=== PATIENT | male | born 1990 | race African-American/Black ===

== ENCOUNTER 2021-01-01 15:31 | Inpatient (IN) | payer OTHER ==
[2021-01-01] MEDS ORDERED: SODIUM CHLORIDE 0.9% 1,000 ML IV STA ×3 (15:45→16:56)
[2021-01-01] MEDS ORDERED: HYDROmorphone 1 MG/ML CARPUJECT IVP STA (15:45)
[2021-01-01] MEDS ORDERED: ONDANSETRON 4 MG/2 ML VIAL IVP STA (15:45)
--- NOTE | 2021-01-01 15:48 | ED Physician Documentation ---
History of Present Illness - Stated complaint Stated Complaint: R FLANK PX - Chief complaint Chief Complaint: Abd Pain - Additonal information Additional information: 30-year old male presents emergency department for evaluation of 2 days right flank pain. Initially began in the right lower quadrant but then migrated up towards his flank. Reports vomiting tactile fevers. Some dysuria and discoloration of the urine. States he had similar last year that was self resolved though he sought no medical treatment. Denies any pertinent past medical or surgical history. Takes no prescribed medications. Denies tobacco vaping alcohol use/abuse Review of Systems Constitutional: denies: Fever, Chills Eyes: reports: Reviewed and negative Ears: reports: Reviewed and negative Nose: reports: Reviewed and negative Throat: reports: Reviewed and negative Cardiac: reports: Reviewed and negative Respiratory: reports: Reviewed and negative GI: reports: Abdominal Pain, Nausea, Vomiting : reports: Dysuria Skin: denies: Rash, Lesions Musculoskeletal: denies: Neck pain, Back pain Neurologic: reports: Reviewed and negative Psychiatric: reports: Reviewed and negative PD PAST MEDICAL HISTORY - Present Medications Home Medications: Ambulatory Orders Medication Instructions Recorded Confirmed No Known Home Medications 01/01/21 01/01/21 - Allergies Allergies/Adverse Reactions: Allergies Allergy/AdvReac Type Severity Reaction Status Date / Time No Known Drug Allergies Allergy Verified 01/01/21 15:34 PD ED PE EXPANDED - General General: Alert, No acute distress, Well developed/nourished - Cardiac Cardiac: Tachy, Radial strong equal, Pedal strong equal, Cap refill < 2 sec. No: Murmur Present - Respiratory Respiratory: Clear to ausultation jennifer. No: Distress, Labored - Abdomen Abdomen: Normal Bowel sounds, Tender to palpation (RLQ/Right flnak. + CVA tenderness), Rebound, Guarding - Derm Derm: Normal color, Diaphoretic - Extremities Extremities: Normal. No: Deformity, Tenderness - Neuro Neuro: Alert and Oriented X 3, CNII-XII intact - GCS Eye Opening: Spontaneous Motor: Obeys Commands Verbal: Oriented Total: 15 Results - Vitals Vitals: Vital Signs - 24 hr 01/01/21 01/01/21 01/01/21 15:34 16:38 17:30 Temperature 36.6 C Heart Rate 120 H 90 90 Respiratory 16 14 16 Rate Blood Pressure 140/92 H 169/93 H 147/98 H O2 Saturation 97 94 97 01/01/21 18:00 Temperature Heart Rate 102 H Respiratory 16 Rate Blood Pressure 151/91 H O2 Saturation 97 Oxygen O2 Source Room air - Labs Labs: Laboratory Tests 01/01/21 01/01/21 01/01/21 15:41 15:58 15:58 WBC 29.4 H RBC 6.34 H Hgb 17.1 Hct 47.8 MCV 75.4 L MCH 27.0 MCHC 35.8 RDW 13.2 Plt Count 399 MPV 10.8 Neut # (Auto) 26.0 H Lymph # (Auto) 1.0 L Mcduff[place] # (Auto) 2.2 H Eos # (Auto) 0.0 Baso # (Auto) 0.1 Absolute Nucleated RBC 0.00 Nucleated RBC % 0.0 Manual Slide Review Indicated WBC Morphology NORMAL APPEARANCE Platelet Estimate NORMAL (130-450,000) Platelet Morphology NORMAL APPEARANCE RBC Morph Micro Appear NORMAL APPEARANCE Sodium 134 L Potassium 3.8 Chloride 96 L Carbon Dioxide 22 Anion Gap 16.0 H BUN 36 H Creatinine 1.8 H Estimated GFR (MDRD) 53 L Glucose 120 H Lactic Acid Calcium 10.1 Total Bilirubin 2.2 H AST 22 ALT 34 Alkaline Phosphatase 77 Total Protein 8.0 Albumin 4.2 Globulin 3.8 Albumin/Globulin Ratio 1.1 Lipase 20 L Urine Color ORANGE Urine Clarity SL. CLOUDY Urine pH 5.0 Ur Specific [place] >=1.030 H Urine Protein 100 H Urine Glucose (UA) NEGATIVE Urine Ketones NEGATIVE Urine Occult Blood SMALL H Urine Nitrite POSITIVE H Urine Bilirubin MODERATE H Urine Urobilinogen 1 (NORMAL) Ur Leukocyte Esterase NEGATIVE Urine RBC 0-5 Urine WBC 6-10 H Ur Squamous Epith Cells FEW Squamous Amorphous Sediment Few Urine Bacteria Many H Urine Casts 3-5 Hyaline Casts Urine Mucus Few Strands Ur Microscopic Review INDICATED Urine Culture Comments INDICATED 01/01/21 17:11 WBC RBC Hgb Hct MCV MCH MCHC RDW Plt Count MPV Neut # (Auto) Lymph # (Auto) Mcduff[place] # (Auto) Eos # (Auto) Baso # (Auto) Absolute Nucleated RBC Nucleated RBC % Manual Slide Review WBC Morphology Platelet Estimate Platelet Morphology RBC Morph Micro Appear Sodium Potassium Chloride Carbon Dioxide Anion Gap BUN Creatinine Estimated GFR (MDRD) Glucose Lactic Acid 1.2 Calcium Total Bilirubin AST ALT Alkaline Phosphatase Total Protein Albumin Globulin Albumin/Globulin Ratio Lipase Urine Color Urine Clarity Urine pH Ur Specific [place] Urine Protein Urine Glucose (UA) Urine Ketones Urine Occult Blood Urine Nitrite Urine Bilirubin Urine Urobilinogen Ur Leukocyte Esterase Urine RBC Urine WBC Ur Squamous Epith Cells Amorphous Sediment Urine Bacteria Urine Casts Urine Mucus Ur Microscopic Review Urine Culture Comments - Rads (name of study) CT abd Radiology: Final report received (Ending is suggestive of acute appendicitis with appendicolith. No abscess collection. No free fluid or free air. No evidence of bowel obstruction. Mild bibasilar dependent atelectasis.) PD MEDICAL DECISION MAKING - ED course Complexity details: reviewed old records, reviewed results, re-evaluated patient, d/w patient, d/w clothing consultant (yessica) ED course: 30-year-old male presents to the emergency department for evaluation of 2 days right lower quadrant and right flank pain. He did endorse vomiting. No fevers. Initially he appeared very well though somewhat diaphoretic. He had no fever tachycardia or hypotension. Screening labs revealed significant leukocytosis with white count of 29,000. His urine also looks grossly infected. Presumptive diagnosis was right flank pain concern for infected stone or pyelonephritis. 2 g of ceftriaxone were ordered empirically. CT of the abdomen however does show acute appendicitis without abscess or perforation. Dr. Yanez surgeon on-call was notified and she made plans come to the hospital for emergent appendectomy. Flagyl was also initiated given that this is intra-abdominal infection associated with acute appendicitis. Pt is notified of plans for emergent surgery. Pt is NPO - Sepsis Event Sepsis Onset Date: 01/01/21 Sepsis Onset Time: 16:38 Current Stage of Sepsis: Sepsis Initial Hypotension: Not hypotensive Possible source of Sepsis: GI tract/intra-abdominal, Genitourinary Mental/Cognitive Status: Alert/Oriented X3, Normal for patient Reason for not giving 30ml/kg crystalloid fluids: Not in septic shock Capillary refill: Less than 2 seconds Peripheral Pulse Strength: 2+ Slightly Diminished Peripheral Pulse Location: Radial Sepsis Comment: Sepsis identified at 1639 with findings of leukocytosis, urinary infection. 2 gm of ceftriaxone ordered. total [address] abd/pelvis pending Departure - Departure Disposition: [facility] DC/Xfer Clinical Impression: Appendicitis Qualifiers: Appendicitis type: acute appendicitis Acute appendicitis type: with localized peritonitis Appendicitis gangrene presence: without gangrene Appendicitis perforation presence: with perforation Appendicitis abscess presence: with abscess Qualified Code(s): K35.33 - Acute appendicitis with perforation and localized peritonitis, with abscess Sepsis Qualifiers: Sepsis type: sepsis due to unspecified organism Sepsis acute organ dysfunction status: with acute organ dysfunction Severe sepsis acute organ dysfunction type: acute renal failure Acute renal failure type: unspecified Severe sepsis shock status: without septic shock Qualified Code(s): A41.9 - Sepsis, unspecified organism
[2021-01-01 16:11] LABS: BILIRUBIN,URINE MODERATE (NEGATIVE); CLARITY,URINE SL. CLOUDY (CLEAR); GLUCOSE, URINE (UA) NEGATIVE (NEGATIVE); KETONES,URINE (UA) NEGATIVE (NEGATIVE); LEUKOCYTE ESTERASE, URINE NEGATIVE (NEGATIVE); NITRITE,URINE POSITIVE (NEGATIVE); OCCULT BLOOD,URINE SMALL (NEGATIVE); PROTEIN,URINE 100 mg/dL (NEGATIVE); UROBILINOGEN,URINE 1 (NORMAL) E.U./dL (NORMAL)
[2021-01-01 16:17] LABS: AMORPHOUS SEDIMENT,UR Few /LPF; BACTERIA,URINE Many /HPF (None Seen); CASTS, URINE 3-5 Hyaline Casts /LPF; MUCUS,URINE Few Strands; RBC,URINE 0-5 /HPF (0-5); SQUAMOUS EPITHELIAL CELL,UR FEW Squamous (<= Few)
[2021-01-01 16:19] LABS: BASOPHILS # (AUTO) 0.1 10^3/uL (0.0-0.1); BASOPHILS % (AUTO) 0.2 %; HCT - HEMATOCRIT 47.8 % (42.0-52.0); HGB - HEMOGLOBIN 17.1 g/dL (14.0-18.0); LYMPHOCYTES % (AUTO) 3.3 %; MEAN CORPUSCULAR HGB CONC 35.8 g/dL (32.0-36.0); MEAN CORPUSCULAR VOLUME 75.4 fL (80.0-94.0); MEAN PLATELET VOLUME 10.8 fL (7.4-11.4); MONOCYTES # (AUTO) 2.2 10^3/uL (0.0-1.0); MONOCYTES % (AUTO) 7.3 %; NEUTROPHILS % (AUTO) 88.4 %; PLT - PLATELET COUNT 399 10^3/uL (130-450); RED BLOOD COUNT 6.34 10^6/uL (4.70-6.10); RED CELL DISTRIBUTION WIDTH 13.2 % (12.0-15.0); WHITE BLOOD COUNT 29.4 x10^3/uL (4.8-10.8)
[2021-01-01 16:21] LABS: SLIDE REVIEW? Indicated
[2021-01-01 16:34] LABS: ALBUMIN 4.2 g/dL (3.2-5.5); ALBUMIN/GLOBULIN RATIO 1.1 (1.0-2.2); BILIRUBIN,TOTAL 2.2 mg/dL (0.2-1.0); CALCIUM 10.1 mg/dL (8.5-10.3); CREATININE 1.8 mg/dL (0.6-1.2); POTASSIUM 3.8 mmol/L (3.5-5.0)
[2021-01-01] MEDS ORDERED: cefTRIAXone 2 GM VIAL IVP STA (16:39)
[2021-01-01 16:47] LABS: PLATELET ESTIMATE, MANUAL NORMAL (130-450,000) (NORMAL); PLATELET MORPHOLOGY NORMAL APPEARANCE (NORMAL); RBC MORPHOLOGY (MULTIPLE) NORMAL APPEARANCE (NORMAL); WBC MORPHOLOGY (MULTIPLE) NORMAL APPEARANCE (NORMAL)
[2021-01-01] MEDS ORDERED: metroNIDAZOLE 500 MG/100 ML 500 MG/100 ML BAG IV ONE (16:55)
--- NOTE | 2021-01-01 17:23 | CT Report ---
PROCEDURE: Abdomen/Pelvis W INDICATIONS: right flank pain with vomiting CONTRAST: IV CONTRAST: Isovue 300 ml: 100 PO CONTRAST: *NO PO CONTRAST TECHNIQUE: After the administration of IV contrast, 5 mm thick sections acquired from the diaphragms to the symp hysis. 5 mm thick coronal and sagittal reformats were acquired. For radiation dose reduction, the f ollowing was used: automated exposure control, adjustment of mA and/or kV according to patient size. COMPARISON: None. FINDINGS: Image quality: Excellent. ABDOMEN: Lung bases: Dependent atelectasis in posterior aspect of bilateral lung bases are seen. Heart size is normal. Solid organs: Liver and spleen are normal in size and enhancement. Gallbladder is within normal pinto its Biliary system is non dilated. Pancreas enhances normally. No adrenal nodules. Kidneys demons trate normal size and enhancement, without hydronephrosis. Peritoneum and bowel: There is a small hiatal hernia. A few fluid distended small bowel and ascending colon loops are seen. Significant wall thickening and adjacent mesenteric fat stranding involving en larged appendix is seen. There are junction of 8 mm calcification in proximal appendix likely represe nt appendicoliths. No abscess collection. No free fluid of free air. Mild adjacent terminal ileal wal l thickening is seen likely represent reactive inflammatory changes. Nodes and vessels: No retroperitoneal or mesenteric adenopathy by size criteria. Aorta and inferior vena cava are normal in size. Miscellaneous: No ventral hernias. PELVIS: Genitourinary: Bladder wall thickness is normal. Miscellaneous: No inguinal hernias or adenopathy. Bones: No suspicious bony lesions. No vertebral body compression fractures. IMPRESSION: 1. Finding is suggestive of acute appendicitis with appendicolith. No abscess collection. No free flu id of free air. No evidence of bowel obstruction. 2. Mild bibasilar dependent atelectasis. Reviewed by: Anthony Ruiz MD on 01/01/2021 4:22 PM AKDT Approved by: Anthony Ruiz MD on 01/01/2021 4:22 PM AKDT Station ID: [id number]
[2021-01-01] MEDS ORDERED: MIDAZOLAM 2 MG/2 ML VIAL ONE (17:51)
[2021-01-01] MEDS ORDERED: ROCURONIUM 50 MG/5 ML VIAL ONE ×2 (17:51→18:54)
[2021-01-01] MEDS ORDERED: PROPOFOL 200 MG/20 ML VIAL IVP ONE ×2 (17:51)
[2021-01-01] MEDS ORDERED: fentaNYL 100 MCG/2 ML VIAL ONE ×2 (17:52→18:54)
[2021-01-01] MEDS ORDERED: LIDOCAINE MPF 2%-EPI 1:200000 20 ML VIAL ONE (18:00)
[2021-01-01] MEDS ORDERED: BUPIVACAINE 0.5% PF 30 ML VIAL ONE (18:00)
--- NOTE | 2021-01-01 18:04 | ANESTHESIA ---
Pre-Anesthesia VS, & Labs - Diagnosis Acute appendicitis - Procedure Lap Appy Vital Signs: Temp Pulse Resp BP Pulse Ox 36.6 C 90 14 169/93 H 94 01/01/21 15:34 01/01/21 16:38 01/01/21 16:38 01/01/21 16:38 01/01/21 16:38 Height: 5 ft 10 in Weight (kg): 101.3 kg Body Mass Index: 32.0 BMI Classification: Obese - NPO >8 hours - Lab Results Current Lab Results: Laboratory Tests 01/01/21 17:11: Lactic Acid 1.2 01/01/21 15:58: Sodium 134 L, Potassium 3.8, Chloride 96 L, Carbon Dioxide 22, Anion Gap 16.0 H, BUN 36 H, Creatinine 1.8 H, Estimated GFR (MDRD) 53 L, Glucose 120 H, Calcium 10.1, Total Bilirubin 2.2 H, AST 22, ALT 34, Alkaline Phosphatase 77, Total Protein 8.0, Albumin 4.2, Globulin 3.8, Albumin/Globulin Ratio 1.1, Lipase 20 L 01/01/21 15:58: WBC 29.4 H, RBC 6.34 H, Hgb 17.1, Hct 47.8, MCV 75.4 L, MCH 27.0, MCHC 35.8, RDW 13.2, Plt Count 399, MPV 10.8, Neut # (Auto) 26.0 H, Lymph # (Auto) 1.0 L, [place] # (Auto) 2.2 H, Eos # (Auto) 0.0, Baso # (Auto) 0.1, Absolute Nucleated RBC 0.00, Nucleated RBC % 0.0, Manual Slide Review Indicated, WBC Morphology NORMAL APPEARANCE, Platelet Estimate NORMAL (130-450,000), Platelet Morphology NORMAL APPEARANCE, RBC Morph Micro Appear NORMAL APPEARANCE Fish Bones: 01/01/21 15:58 01/01/21 15:58 Home Medications and Allergies Home Medications: Ambulatory Orders No Known Home Medications 01/01/21 No Known Home Medications 01/01/21 Allergies/Adverse Reactions: Allergies Allergy/AdvReac Type Severity Reaction Status Date / Time No Known Drug Allergies Allergy Verified 01/01/21 15:34 Anes History & Medical History - Anesthetic History Family history of Anesthesia Complications: Denies Family history of Malignant Hyperthermia: Denies - Medical History Cardiovascular: reports: None Pulmonary: reports: None Gastrointestinal: reports: None Urinary: reports: Other (acute renal injury) Neuro: reports: None Musculoskeletal: reports: None Endocrine/Autoimmune: reports: None Blood Disorders: reports: None Skin: reports: None Smoking Status: Never smoker Psychosocial: reports: No issues indicated History of Cancer?: No Other Past Medical History: Sepsis Exam General: Alert, Oriented x3, Cooperative, No acute distress Dental: WNL Mouth Openin Fingerbreadth Neck Mobility: Normal Mallampati classification: II Thyromental Distance: greater than 6 cm Respiratory: Lungs clear, Normal breath sounds, No respiratory distress, No accessory muscle use Cardiovascular: Regular rate, Normal S1, Normal S2, No murmurs Mental/Cognitive Status: Alert/Oriented X3, Normal for patient Plan Anesthesia Type: General Consent for Procedure(s) Verified and Reviewed: Yes Code Status: Attempt Resuscitation ASA classification: 2-Mild systemic disease Is this case an emergency?: Yes
--- NOTE | 2021-01-01 18:11 | HISTORY & PHYSICAL EXAMINATION ---
HPI - Admitted From Admitted from: ED - History Obtained From History obtained from: Patient Exam limitations: No limitations - History of Present Illness Severity at the worst: reports: Moderate Pain Quality: reports: Aching Timing: reports: Gradual onset HPI Comment/Other: Generally healthy 30-year-old gentleman presents with abdominal pain that began in the right flank on Tuesday. He reports he had a similar episode about a year ago that responded without treatment so he thought he would ride it out. He says he noticed discoloration in his urine on Tuesday or Tuesday and began to feel just terrible. He presented to the emergency room reporting hematuria and flank pain. He was seen and evaluated the by the emergency room staff and found to have both appendicitis and urosepsis. I have been consulted for management of his appendicitis. PMH/PSH - Past Medical History Cardiovascular: positive: None Respiratory: positive: None Neuro: positive: None Endocrine/Autoimmune: positive: None GI: positive: None : positive: Other (acute renal injury) Musculoskeletal: positive: None Derm: positive: None Other Past Medical History: Sepsis Social & Family Hx - Social History Does the pt smoke?: No Smoking Status: Never smoker Does the pt drink ETOH?: No Does the pt have substance abuse?: No Meds/Allgy - Home Medications Home Medications: Ambulatory Orders Medication Instructions Recorded Confirmed No Known Home Medications 01/01/21 01/01/21 - Allergies Allergies/Adverse Reactions: Allergies Allergy/AdvReac Type Severity Reaction Status Date / Time No Known Drug Allergies Allergy Verified 01/01/21 15:34 Review of Systems - Constitutional Constitutional: reports: Fatigue, Fever, Chills, Malaise, Weakness, Poor appet ite - Eyes Eyes: denies: Pain - Ears, Nose & Throat Ears, Nose & Throat: denies: Tinnitus, Vertigo - Cardiovascular Cariovascular: reports: Irregular heart rate - Gastrointestinal Gastrointestinal: reports: Abdominal pain - Genitourinary Genitourinary: reports: Dysuria, Frequency, Urgency, Hematuria - All Other Systems All Other Systems: reports: Reviewed and negative Exam - Vital Signs Reviewed Vital Signs: Yes Vital Signs: Vital Signs x48h Temp Pulse Resp BP Pulse Ox 01/01/21 16:38 90 14 169/93 H 94 01/01/21 15:34 36.6 C 120 H 16 140/92 H 97 - Physical Exam General Appearance: positive: Alert, Moderate distress Eyes Bilateral: positive: Normal inspection, PERRL, EOMI ENT: positive: ENT inspection nml, Pharynx nml, No signs of dehydration Neck: positive: Nml inspection, Thyroid nml Respiratory: positive: Chest non-tender, No respiratory distress, Breath sounds nml Cardiovascular: positive: Regular rate & rhythm Peripheral Pulses: positive: 1+ Abdomen: positive: Tenderness, Guarding, Rebound Rectal: positive: Non-tender Back: positive: CVA tenderness (R) Skin: positive: Color nml Extremities: positive: Non-tender Neurologic/Psychiatric: positive: Oriented x3 Results - Lab Results Lab results reviewed: Yes Fish Bones: 01/01/21 15:58 01/01/21 15:58 Other Lab Results: Lab Results x24hrs 01/01/21 01/01/21 01/01/21 Range/Units 17:11 15:58 15:58 WBC 29.4 H (4.8-10.8) x10^3/uL RBC 6.34 H (4.70-6.10) 10^6/uL Hgb 17.1 (14.0-18.0) g/dL Hct 47.8 (42.0-52.0) % MCV 75.4 L (80.0-94.0) fL MCH 27.0 (27.0-31.0) pg MCHC 35.8 (32.0-36.0) g/dL RDW 13.2 (12.0-15.0) % Plt Count 399 (130-450) 10^3/uL MPV 10.8 (7.4-11.4) fL Neut # (Auto) 26.0 H (1.5-6.6) 10^3/uL Lymph # (Auto) 1.0 L (1.5-3.5) 10^3/uL [place] # (Auto) 2.2 H (0.0-1.0) 10^3/uL Eos # (Auto) 0.0 (0.0-0.7) 10^3/uL Baso # (Auto) 0.1 (0.0-0.1) 10^3/uL Absolute Nucleated RBC 0.00 x10^3/uL Nucleated RBC % 0.0 /100WBC Manual Slide Review Indicated WBC Morphology NORMAL APPEARANCE (NORMAL) Platelet Estimate NORMAL (130-450,000) (NORMAL) Platelet Morphology NORMAL APPEARANCE (NORMAL) RBC Morph Micro Appear NORMAL APPEARANCE (NORMAL) Sodium 134 L (135-145) mmol/L Potassium 3.8 (3.5-5.0) mmol/L Chloride 96 L (101-111) mmol/L Carbon Dioxide 22 (21-32) mmol/L Anion Gap 16.0 H (6-13) BUN 36 H (6-20) mg/dL Creatinine 1.8 H (0.6-1.2) mg/dL Estimated GFR (MDRD) 53 L (>89) Glucose 120 H (70-100) mg/dL Lactic Acid 1.2 (0.5-2.2) mmol/L Calcium 10.1 (8.5-10.3) mg/dL Total Bilirubin 2.2 H (0.2-1.0) mg/dL AST 22 (10-42) IU/L ALT 34 (10-60) IU/L Alkaline Phosphatase 77 (42-121) IU/L Total Protein 8.0 (6.7-8.2) g/dL Albumin 4.2 (3.2-5.5) g/dL Globulin 3.8 (2.1-4.2) g/dL Albumin/Globulin Ratio 1.1 (1.0-2.2) Lipase 20 L (22-51) U/L Urine Color Urine Clarity (CLEAR) Urine pH (5.0-7.5) PH Ur Specific Orange (1.002-1.030) Urine Protein (NEGATIVE) mg/dL Urine Glucose (UA) (NEGATIVE) mg/dL Urine Ketones (NEGATIVE) mg/dL Urine Occult Blood (NEGATIVE) Urine Nitrite (NEGATIVE) Urine Bilirubin (NEGATIVE) Urine Urobilinogen (NORMAL) E.U./dL Ur Leukocyte Esterase (NEGATIVE) Urine RBC (0-5) /HPF Urine WBC (0-3) /HPF Ur Squamous Epith Cells (<= Few) Amorphous Sediment /LPF Urine Bacteria (None Seen) /HPF Urine Casts /LPF Urine Mucus Ur Microscopic Review Urine Culture Comments 01/01/21 Range/Units 15:41 WBC (4.8-10.8) x10^3/uL RBC (4.70-6.10) 10^6/uL Hgb (14.0-18.0) g/dL Hct (42.0-52.0) % MCV (80.0-94.0) fL MCH (27.0-31.0) pg MCHC (32.0-36.0) g/dL RDW (12.0-15.0) % Plt Count (130-450) 10^3/uL MPV (7.4-11.4) fL Neut # (Auto) (1.5-6.6) 10^3/uL Lymph # (Auto) (1.5-3.5) 10^3/uL [place] # (Auto) (0.0-1.0) 10^3/uL Eos # (Auto) (0.0-0.7) 10^3/uL Baso # (Auto) (0.0-0.1) 10^3/uL Absolute Nucleated RBC x10^3/uL Nucleated RBC % /100WBC Manual Slide Review WBC Morphology (NORMAL) Platelet Estimate (NORMAL) Platelet Morphology (NORMAL) RBC Morph Micro Appear (NORMAL) Sodium (135-145) mmol/L Potassium (3.5-5.0) mmol/L Chloride (101-111) mmol/L Carbon Dioxide (21-32) mmol/L Anion Gap (6-13) BUN (6-20) mg/dL Creatinine (0.6-1.2) mg/dL Estimated GFR (MDRD) (>89) Glucose (70-100) mg/dL Lactic Acid (0.5-2.2) mmol/L Calcium (8.5-10.3) mg/dL Total Bilirubin (0.2-1.0) mg/dL AST (10-42) IU/L ALT (10-60) IU/L Alkaline Phosphatase (42-121) IU/L Total Protein (6.7-8.2) g/dL Albumin (3.2-5.5) g/dL Globulin (2.1-4.2) g/dL Albumin/Globulin Ratio (1.0-2.2) Lipase (22-51) U/L Urine Color ORANGE Urine Clarity SL. CLOUDY (CLEAR) Urine pH 5.0 (5.0-7.5) PH Ur Specific [place] >=1.030 H (1.002-1.030) Urine Protein 100 H (NEGATIVE) mg/dL Urine Glucose (UA) NEGATIVE (NEGATIVE) mg/dL Urine Ketones NEGATIVE (NEGATIVE) mg/dL Urine Occult Blood SMALL H (NEGATIVE) Urine Nitrite POSITIVE H (NEGATIVE) Urine Bilirubin MODERATE H (NEGATIVE) Urine Urobilinogen 1 (NORMAL) (NORMAL) E.U./dL Ur Leukocyte Esterase NEGATIVE (NEGATIVE) Urine RBC 0-5 (0-5) /HPF Urine WBC 6-10 H (0-3) /HPF Ur Squamous Epith Cells FEW Squamous (<= Few) Amorphous Sediment Few /LPF Urine Bacteria Many H (None Seen) /HPF Urine Casts 3-5 Hyaline Casts /LPF Urine Mucus Few Strands Ur Microscopic Review INDICATED Urine Culture Comments INDICATED - Diagnostic Imaging Results Diagnostic Imaging Results: positive: Prelim report reviewed Diagnostic Imaging Results Comments: Acute non-perforated appendicitis Sepsis Event Note (H) - Evaluation Current Stage of Sepsis: Sepsis Possible source of Sepsis: positive: GI tract/intra-abdominal, Genitourinary - Sepsis Criteria Sepsis Criteria: Recorded Heart Rate greater than 90 bpm, Recorded Respiratory Rate greater than 20, WBC count greater than 12,000 or less than 4000 Impression/Plan - Problem List Problem List: 1. Acute appendicitis-I have recommended laparoscopic appendectomy. We discussed the risks and benefits of the procedure and the patient is expressed a desire to complete it tonight. 2. Urosepsis he has been treated with 2 g of Rocephin and Flagyl and his culture is pending.
[2021-01-01] MEDS ORDERED: ACETAMINOPHEN 1,000 MG/100 ML 100 ML IV ONE (18:41)
[2021-01-01] MEDS ORDERED: DEXAMETHASONE 4 MG/ML VIAL ONE (18:56)
[2021-01-01] MEDS ORDERED: SUGAMMADEX 200 MG/2 ML VIAL IVP ONE (19:10)
[2021-01-01] MEDS ORDERED: ATROPINE ABBOJECT 1 MG/10 ML SYRINGE IVP PRN (19:14)
[2021-01-01] MEDS ORDERED: NALOXONE 0.4 MG/ML VIAL IVP PRN (19:14)
[2021-01-01] MEDS ORDERED: HYDROmorphone 0.5 MG/0.5 ML SYRINGE IVP PRN (19:14)
[2021-01-01] MEDS ORDERED: fentaNYL 100 MCG/2 ML VIAL IVP PRN (19:14)
[2021-01-01] MEDS ORDERED: MORPHINE 2 MG/ML CARPUJECT IVP PRN (19:14)
[2021-01-01] MEDS ORDERED: ONDANSETRON 4 MG/2 ML VIAL IVP PRN ×2 (19:14→19:33)
[2021-01-01] MEDS ORDERED: LIDOCAINE 1%-EPI 1:100000 20 ML MDV SUBQ ONE (19:22)
[2021-01-01] MEDS ORDERED: BUPIVACAINE 0.5% PF 30 ML VIAL INFIL ONE (19:23)
--- NOTE | 2021-01-01 19:27 | OPERATIVE REPORT ---
Operative Report - General Procedure Date: 01/01/21 Planned Procedure: Skippy with appendectomy and indicated procedures Pre-Op Diagnosis: Acute appendicitis Procedure Performed: Laparoscopy with appendectomy, drainage of abscess, and drain placement Post Op Diagnosis: Perforated appendicitis with abscess - Procedure Note Primary Surgeon: Can Anesthesia Provider: SUNIL Crook Anesthesia Technique: General ET tube Pathology: Appendix to pathology in formalin Estimated Blood Loss (mL): 20 Drain/Tube Type: Dariusz drain (19 Telugu Dariusz drain in the right paracolic gutter) Findings: Acute perforated appendicitis with abscess in the right lower quadrant Complications: None apparent - Other Other Information/Narrative: After obtaining informed consent, the patient is brought to the operating room and placed in the supine position on the operating table. Following successful induction of general endotracheal anesthesia, appropriate padding of all bony prominences, and placement of appropriate monitors, the abdomen was prepped and draped in the standard surgical fashion. A timeout was held per scope protocol. All elements of the surgical safety checklist were followed before, during, and after the procedure. Following infiltration with local anesthetic to create a field block, an incision was created inferior to the umbilicus and carried down through the skin and subcutaneous tissue to reveal the fascia below. 2-0 Vicryl retention sutures were placed on either side of the midline and the abdomen was entered under direct vision using a 15 blade scalpel. A 10 mm blunt Styles balloon trocar was placed in the abdominal cavity and it was insufflated to 15 mmHg pressure. The patient was placed in Trendelenburg position with the left side rotated toward the floor. The camera was placed in the abdominal cavity and we immediately visualized the cecum in the right lower quadrant. It was rotated medially to reveal a somewhat dilated and turgid appendix with surrounding purulent material and exudate. The appendix was grasped and elevated revealing its attachment to the cecum. A window was created in the mesoappendix at this location. A laparoscopic stapling device was used to ligate the appendix and liberated from its attachment to the cecum. An additional load of the device were used to divide its mesentery.The appendix was placed in an Endo Catch bag and removed via the umbilical port with a camera in the epigastric position. The camera was replaced in the operative site examined. It was irrigated with warm saline solution and aspirated free of all fluid and particulate matter. The table was flattened and the abdomen evaluated once again. The trochars were removed under direct vision and abdomen was desufflated. The umbilical incision was closed with interrupted Vicryl suture and Monocryl stitches were placed in the skin. All sponge, needles, and instrument counts were correct at the conclusion of the case. The patient was allowed to wake from anesthesia without difficulty and taken to the postanesthesia care unit in good condition.
[2021-01-01] MEDS ORDERED: SODIUM CHLORIDE FLUSH 0.9% 10 ML SYRINGE IVP PRN (19:33)
[2021-01-01] MEDS ORDERED: LORazepam 2 MG/ML VIAL IVP PRN (19:33)
[2021-01-01] MEDS ORDERED: LACTATED RINGERS 1,000 ML IV ONE (19:39)
[2021-01-01] MEDS ORDERED: LACTATED RINGERS 1,000 ML IV SCH (20:00)
--- NOTE | 2021-01-01 20:03 | ANESTHESIA POST OP EVALUATION ---
Anesthesia Post Eval - Post Anesthesia Eval Vitals: Last Vital Signs Temp 36.8 C 01/01/21 19:34 Pulse 100 01/01/21 19:55 Resp 18 01/01/21 19:55 BP 152/96 H 01/01/21 19:55 Pulse Ox 98 01/01/21 19:55 CV Function Including HR & BP: Stable Pain Control: Satisfactory Nausea & Vomiting: Negative Mental Status: Baseline Respiratory Status: Airway Patent Hydration Status: Satisfactory Anesthesia Complications: None
[2021-01-01] MEDS ORDERED: IOPAMIDOL-300 100 ML VIAL IVP ONE (20:36)
[2021-01-01] MEDS: SODIUM CHLORIDE 0.9% 1,000 ML IV SCH (20:37)
[2021-01-01] MEDS: HYDROmorphone 1 MG/ML CARPUJECT IVP PRN (21:41)
[2021-01-01] MEDS ORDERED: PIPERACILLIN/TAZOBACTAM 3.375 GM in SODIUM CHLORIDE 0.9% MINIBAG 100 ML IV SCH (22:00)
[2021-01-01] MEDS ORDERED: PHENOL THROAT SPRAY 177 ML MM PRN (23:42)
[2021-01-02] MEDS ORDERED: SODIUM CHLORIDE FLUSH 0.9% 10 ML SYRINGE IVP SCH (01:00)
[2021-01-02] MEDS: PIPERACILLIN/TAZOBACTAM 3.375 GM in SODIUM CHLORIDE 0.9% MINIBAG 100 ML IV SCH ×3 (01:40→18:06)
[2021-01-02] MEDS: ACETAMINOPHEN 1,000 MG/100 ML 100 ML IV PRN ×2 (01:41→08:10)
[2021-01-02] MEDS: HYDROmorphone 1 MG/ML CARPUJECT IVP PRN ×3 (01:45→11:36)
[2021-01-02] MEDS: SODIUM CHLORIDE FLUSH 0.9% 10 ML SYRINGE IVP SCH ×4 (01:45→23:55)
[2021-01-02] MEDS: SODIUM CHLORIDE 0.9% 1,000 ML IV SCH ×4 (03:31→18:56)
[2021-01-02 04:43] LABS: BASOPHILS % (AUTO) 0.1 %; EOSINOPHILS % (AUTO) 0.6 %; HCT - HEMATOCRIT 43.9 % (42.0-52.0); HGB - HEMOGLOBIN 14.8 g/dL (14.0-18.0); LYMPHOCYTES % (AUTO) 2.1 %; MEAN CORPUSCULAR HEMOGLOBIN 26.3 pg (27.0-31.0); MEAN CORPUSCULAR HGB CONC 33.7 g/dL (32.0-36.0); MEAN PLATELET VOLUME 11.1 fL (7.4-11.4); NEUTROPHILS % (AUTO) 90.4 %; PLT - PLATELET COUNT 337 10^3/uL (130-450); RED BLOOD COUNT 5.63 10^6/uL (4.70-6.10); RED CELL DISTRIBUTION WIDTH 13.2 % (12.0-15.0); WHITE BLOOD COUNT 21.7 x10^3/uL (4.8-10.8)
[2021-01-02 04:49] LABS: ABNORMAL LYMPHS % (MANUAL) 0 %; BAND NEUTROPHILS % (MANUAL) 0 %
[2021-01-02 05:02] LABS: ALBUMIN 3.3 g/dL (3.2-5.5); ALBUMIN/GLOBULIN RATIO 0.9 (1.0-2.2); BILIRUBIN,TOTAL 1.1 mg/dL (0.2-1.0); CREATININE 1.1 mg/dL (0.6-1.2); DIFFERENTIAL COMMENT MANUAL DIFFERENTIAL; LYMPHOCYTES # (MANUAL) 1.1 10^3/uL (1.5-3.5); LYMPHOCYTES % (MANUAL) 5 %; MONOCYTES # (MANUAL) 1.3 10^3/uL (0.0-1.0); NEUTROPHILS # (MANUAL) 19.3 10^3/uL (1.5-6.6); PLATELET ESTIMATE, MANUAL NORMAL (130-450,000) (NORMAL); PLATELET MORPHOLOGY NORMAL APPEARANCE (NORMAL); POTASSIUM 4.4 mmol/L (3.5-5.0); RBC MORPHOLOGY (MULTIPLE) NORMAL APPEARANCE (NORMAL); TOTAL PROTEIN 7.1 g/dL (6.7-8.2); WBC MORPHOLOGY (MULTIPLE) NORMAL APPEARANCE (NORMAL)
[2021-01-02] MEDS: PANTOPRAZOLE 40 MG TABLET PO SCH (06:58)
[2021-01-02] MEDS: ENOXAPARIN 40 MG/0.4 ML SYRINGE SUBQ SCH (08:23)
--- NOTE | 2021-01-02 11:56 | PROVIDER PROGRESS NOTE ---
Subjective - General Admit Date: 01/01/21 Procedure Date: 01/01/21 Post Op Days: 1 Procedure Performed: Lap appy with abscess drainage - Review of Systems Wound/Incisions: positive: Dressing dry and intact Drain Type: Dariusz Drain Output Description: Cloudy and serous General: positive: No symptoms. negative: Fever HEENT: positive: No symptoms Pulmonary: positive: No symptoms Cardiovascular: positive: No symptoms Gastrointestinal: positive: Abdominal pain (Reports 3 out of 10 this morning). negative: Nausea, Vomiting Genitourinary: positive: Other (Symptoms improved) All Other Systems: positive: Reviewed and negative - Other Other Information/Narrative: Reports feeling much better this AM. No nausea but also no appetite. Objective - Patient Data Vital Signs: Vital Signs x48h Temp Pulse Resp BP Pulse Ox 01/02/21 10:00 91 19 138/89 H 99 01/02/21 09:00 87 15 143/88 H 96 01/02/21 08:00 36.5 C 86 15 141/90 H 96 01/02/21 07:06 82 19 141/93 H 99 01/02/21 06:00 84 17 131/84 H 96 01/02/21 05:00 88 17 138/88 H 96 01/02/21 04:00 86 15 139/86 H 96 Weight: Weight 12/31/20 01/01/21 01/02/21 23:59 23:59 23:59 Weight (kg) 104.5 kg Intake & Output: Intake and Output Totals x24h 12/31/20 01/01/21 01/02/21 23:59 23:59 23:59 Intake Total 1557.5 3075.000 Output Total 635 780 Balance 922.5 2295.000 - Lab Results Lab Results: 01/02/21 03:45 01/02/21 03:45 Other Lab Results: Lab Results x24hrs 01/02/21 01/02/21 01/01/21 Range/Units 03:45 03:45 19:34 WBC 21.7 H (4.8-10.8) x10^3/uL RBC 5.63 (4.70-6.10) 10^6/uL Hgb 14.8 (14.0-18.0) g/dL Hct 43.9 (42.0-52.0) % MCV 78.0 L (80.0-94.0) fL MCH 26.3 L (27.0-31.0) pg MCHC 33.7 (32.0-36.0) g/dL RDW 13.2 (12.0-15.0) % Plt Count 337 (130-450) 10^3/uL MPV 11.1 (7.4-11.4) fL Neut # (Auto) Not Reportable (1.5-6.6) 10^3/uL Lymph # (Auto) Not Reportable (1.5-3.5) 10^3/uL [place] # (Auto) Not Reportable (0.0-1.0) 10^3/uL Eos # (Auto) Not Reportable (0.0-0.7) 10^3/uL Baso # (Auto) Not Reportable (0.0-0.1) 10^3/uL Absolute Nucleated RBC Not Reportable x10^3/uL Total Counted 100 Band Neuts % (Manual) 0 (0 - 10) % Abnorm Lymph % (Manual) 0 % Nucleated RBC % Not Reportable /100WBC Neutrophils # (Manual) 19.3 H (1.5-6.6) 10^3/uL Lymphocytes # (Manual) 1.1 L (1.5-3.5) 10^3/uL Monocytes # (Manual) 1.3 H (0.0-1.0) 10^3/uL Eosinophils # (Manual) 0.0 (0-0.7) 10^3/uL Basophils # (Manual) 0.0 (0-0.1) 10^3/uL Differential Comment MANUAL DIFFERENTIAL Manual Slide Review WBC Morphology NORMAL APPEARANCE (NORMAL) Platelet Estimate NORMAL (130-450,000) (NORMAL) Platelet Morphology NORMAL APPEARANCE (NORMAL) RBC Morph Micro Appear NORMAL APPEARANCE (NORMAL) Sodium 134 L (135-145) mmol/L Potassium 4.4 (3.5-5.0) mmol/L Chloride 103 (101-111) mmol/L Carbon Dioxide 18 L (21-32) mmol/L Anion Gap 13.0 (6-13) BUN 23 H (6-20) mg/dL Creatinine 1.1 (0.6-1.2) mg/dL Estimated GFR (MDRD) 94 (>89) Glucose 129 H (70-100) mg/dL Lactic Acid (0.5-2.2) mmol/L Calcium 9.0 (8.5-10.3) mg/dL Total Bilirubin 1.1 H (0.2-1.0) mg/dL AST 17 (10-42) IU/L ALT 24 (10-60) IU/L Alkaline Phosphatase 61 (42-121) IU/L Total Protein 7.1 (6.7-8.2) g/dL Albumin 3.3 (3.2-5.5) g/dL Globulin 3.8 (2.1-4.2) g/dL Albumin/Globulin Ratio 0.9 L (1.0-2.2) Lipase (22-51) U/L Urine Color Urine Clarity (CLEAR) Urine pH (5.0-7.5) PH Ur Specific [place] (1.002-1.030) Urine Protein (NEGATIVE) mg/dL Urine Glucose (UA) (NEGATIVE) mg/dL Urine Ketones (NEGATIVE) mg/dL Urine Occult Blood (NEGATIVE) Urine Nitrite (NEGATIVE) Urine Bilirubin (NEGATIVE) Urine Urobilinogen (NORMAL) E.U./dL Ur Leukocyte Esterase (NEGATIVE) Urine RBC (0-5) /HPF Urine WBC (0-3) /HPF Ur Squamous Epith Cells (<= Few) Amorphous Sediment /LPF Urine Bacteria (None Seen) /HPF Urine Casts /LPF Urine Mucus Ur Microscopic Review Urine Culture Comments Nasal Screen MRSA (PCR) NEGATIVE (NEGATIVE) 01/01/21 01/01/21 01/01/21 Range/Units 17:11 15:58 15:58 WBC 29.4 H (4.8-10.8) x10^3/uL RBC 6.34 H (4.70-6.10) 10^6/uL Hgb 17.1 (14.0-18.0) g/dL Hct 47.8 (42.0-52.0) % MCV 75.4 L (80.0-94.0) fL MCH 27.0 (27.0-31.0) pg MCHC 35.8 (32.0-36.0) g/dL RDW 13.2 (12.0-15.0) % Plt Count 399 (130-450) 10^3/uL MPV 10.8 (7.4-11.4) fL Neut # (Auto) 26.0 H (1.5-6.6) 10^3/uL Lymph # (Auto) 1.0 L (1.5-3.5) 10^3/uL [place] # (Auto) 2.2 H (0.0-1.0) 10^3/uL Eos # (Auto) 0.0 (0.0-0.7) 10^3/uL Baso # (Auto) 0.1 (0.0-0.1) 10^3/uL Absolute Nucleated RBC 0.00 x10^3/uL Total Counted Band Neuts % (Manual) (0 - 10) % Abnorm Lymph % (Manual) % Nucleated RBC % 0.0 /100WBC Neutrophils # (Manual) (1.5-6.6) 10^3/uL Lymphocytes # (Manual) (1.5-3.5) 10^3/uL Monocytes # (Manual) (0.0-1.0) 10^3/uL Eosinophils # (Manual) (0-0.7) 10^3/uL Basophils # (Manual) (0-0.1) 10^3/uL Differential Comment Manual Slide Review Indicated WBC Morphology NORMAL APPEARANCE (NORMAL) Platelet Estimate NORMAL (130-450,000) (NORMAL) Platelet Morphology NORMAL APPEARANCE (NORMAL) RBC Morph Micro Appear NORMAL APPEARANCE (NORMAL) Sodium 134 L (135-145) mmol/L Potassium 3.8 (3.5-5.0) mmol/L Chloride 96 L (101-111) mmol/L Carbon Dioxide 22 (21-32) mmol/L Anion Gap 16.0 H (6-13) BUN 36 H (6-20) mg/dL Creatinine 1.8 H (0.6-1.2) mg/dL Estimated GFR (MDRD) 53 L (>89) Glucose 120 H (70-100) mg/dL Lactic Acid 1.2 (0.5-2.2) mmol/L Calcium 10.1 (8.5-10.3) mg/dL Total Bilirubin 2.2 H (0.2-1.0) mg/dL AST 22 (10-42) IU/L ALT 34 (10-60) IU/L Alkaline Phosphatase 77 (42-121) IU/L Total Protein 8.0 (6.7-8.2) g/dL Albumin 4.2 (3.2-5.5) g/dL Globulin 3.8 (2.1-4.2) g/dL Albumin/Globulin Ratio 1.1 (1.0-2.2) Lipase 20 L (22-51) U/L Urine Color Urine Clarity (CLEAR) Urine pH (5.0-7.5) PH Ur Specific [place] (1.002-1.030) Urine Protein (NEGATIVE) mg/dL Urine Glucose (UA) (NEGATIVE) mg/dL Urine Ketones (NEGATIVE) mg/dL Urine Occult Blood (NEGATIVE) Urine Nitrite (NEGATIVE) Urine Bilirubin (NEGATIVE) Urine Urobilinogen (NORMAL) E.U./dL Ur Leukocyte Esterase (NEGATIVE) Urine RBC (0-5) /HPF Urine WBC (0-3) /HPF Ur Squamous Epith Cells (<= Few) Amorphous Sediment /LPF Urine Bacteria (None Seen) /HPF Urine Casts /LPF Urine Mucus Ur Microscopic Review Urine Culture Comments Nasal Screen MRSA (PCR) (NEGATIVE) 01/01/21 Range/Units 15:41 WBC (4.8-10.8) x10^3/uL RBC (4.70-6.10) 10^6/uL Hgb (14.0-18.0) g/dL Hct (42.0-52.0) % MCV (80.0-94.0) fL MCH (27.0-31.0) pg MCHC (32.0-36.0) g/dL RDW (12.0-15.0) % Plt Count (130-450) 10^3/uL MPV (7.4-11.4) fL Neut # (Auto) (1.5-6.6) 10^3/uL Lymph # (Auto) (1.5-3.5) 10^3/uL [place] # (Auto) (0.0-1.0) 10^3/uL Eos # (Auto) (0.0-0.7) 10^3/uL Baso # (Auto) (0.0-0.1) 10^3/uL Absolute Nucleated RBC x10^3/uL Total Counted Band Neuts % (Manual) (0 - 10) % Abnorm Lymph % (Manual) % Nucleated RBC % /100WBC Neutrophils # (Manual) (1.5-6.6) 10^3/uL Lymphocytes # (Manual) (1.5-3.5) 10^3/uL Monocytes # (Manual) (0.0-1.0) 10^3/uL Eosinophils # (Manual) (0-0.7) 10^3/uL Basophils # (Manual) (0-0.1) 10^3/uL Differential Comment Manual Slide Review WBC Morphology (NORMAL) Platelet Estimate (NORMAL) Platelet Morphology (NORMAL) RBC Morph Micro Appear (NORMAL) Sodium (135-145) mmol/L Potassium (3.5-5.0) mmol/L Chloride (101-111) mmol/L Carbon Dioxide (21-32) mmol/L Anion Gap (6-13) BUN (6-20) mg/dL Creatinine (0.6-1.2) mg/dL Estimated GFR (MDRD) (>89) Glucose (70-100) mg/dL Lactic Acid (0.5-2.2) mmol/L Calcium (8.5-10.3) mg/dL Total Bilirubin (0.2-1.0) mg/dL AST (10-42) IU/L ALT (10-60) IU/L Alkaline Phosphatase (42-121) IU/L Total Protein (6.7-8.2) g/dL Albumin (3.2-5.5) g/dL Globulin (2.1-4.2) g/dL Albumin/Globulin Ratio (1.0-2.2) Lipase (22-51) U/L Urine Color ORANGE Urine Clarity SL. CLOUDY (CLEAR) Urine pH 5.0 (5.0-7.5) PH Ur Specific [place] >=1.030 H (1.002-1.030) Urine Protein 100 H (NEGATIVE) mg/dL Urine Glucose (UA) NEGATIVE (NEGATIVE) mg/dL Urine Ketones NEGATIVE (NEGATIVE) mg/dL Urine Occult Blood SMALL H (NEGATIVE) Urine Nitrite POSITIVE H (NEGATIVE) Urine Bilirubin MODERATE H (NEGATIVE) Urine Urobilinogen 1 (NORMAL) (NORMAL) E.U./dL Ur Leukocyte Esterase NEGATIVE (NEGATIVE) Urine RBC 0-5 (0-5) /HPF Urine WBC 6-10 H (0-3) /HPF Ur Squamous Epith Cells FEW Squamous (<= Few) Amorphous Sediment Few /LPF Urine Bacteria Many H (None Seen) /HPF Urine Casts 3-5 Hyaline Casts /LPF Urine Mucus Few Strands Ur Microscopic Review INDICATED Urine Culture Comments INDICATED Nasal Screen MRSA (PCR) (NEGATIVE) - Current Medications Current Medications: Current Medications Generic Name Dose Route Start Last Admin Trade Name Freq PRN Reason Stop Dose Admin Enoxaparin Sodium 40 mg 01/02/21 09:00 01/02/21 08:23 Enoxaparin 40 Mg/0.4 Ml Syringe SUBQ 40 mg DAILY SARI Administration Hydromorphone HCl 1 mg 01/01/21 19:33 01/02/21 11:36 Hydromorphone 1 Mg/Ml Carpuject IVP 1 mg Q1HR PRN Administration PAIN Piperacillin Sod/Tazobactam 100 mls @ 25 mls/hr 01/02/21 02:00 01/02/21 10:07 Sod 3.375 gm/ Sodium Chloride IV 25 mls/hr Q8H SARI Administration Pantoprazole Sodium 40 mg 01/02/21 07:00 01/02/21 06:58 Pantoprazole 40 Mg Tablet PO 40 mg QDAC SARI Administration Sodium Chloride 10 ml 01/02/21 01:00 01/02/21 08:13 Sodium Chloride Flush 0.9% 10 Ml Syringe IVP 10 ml 0100,0900,1700 SARI Administration - Physical Exam Wound/Incisions: positive: Healing well, No drainage General Appearance: positive: No acute distress, Alert Eyes Bilateral: positive: Normal inspection Respiratory: positive: Chest non-tender, Breath sounds nml Cardiovascular: positive: Regular rate & rhythm Abdomen: positive: Nml bowel sounds, No distention, Tenderness Skin: positive: Color nml Extremities: positive: Non-tender Neurologic/Psychiatric: positive: Oriented x3 ABX Reporting Has patient been on IV antibiotics over the past 48 hours?: Yes Impression/Plan - Problem List Problem List: POD #1 after lap appy with drainage of an intraperitoneal abscess 1. Urine and peritoneal cultures pending. Continue Zosyn for now. 2. No nausea so will try soft mechanical diet and change to po tylenol 3. Transfer to med surg 4. Continue IVF but decrease rate. 5. Ambulate 6. Labs ordered for the AM
[2021-01-02] MEDS: SODIUM CHLORIDE FLUSH 0.9% 10 ML SYRINGE IVP PRN (12:15)
[2021-01-02] MEDS: ACETAMINOPHEN 325 MG TABLET PO PRN ×3 (16:07→23:55)
[2021-01-03] MEDS: PIPERACILLIN/TAZOBACTAM 3.375 GM in SODIUM CHLORIDE 0.9% MINIBAG 100 ML IV SCH ×3 (01:54→18:27)
[2021-01-03] MEDS: SODIUM CHLORIDE 0.9% 1,000 ML IV SCH ×3 (04:48→23:35)
[2021-01-03] MEDS: ACETAMINOPHEN 325 MG TABLET PO PRN (04:48)
[2021-01-03] MEDS: PANTOPRAZOLE 40 MG TABLET PO SCH (05:57)
[2021-01-03 06:10] LABS: BASOPHILS % (AUTO) 0.2 %; EOSINOPHILS % (AUTO) 0.2 %; HCT - HEMATOCRIT 39.6 % (42.0-52.0); HGB - HEMOGLOBIN 13.7 g/dL (14.0-18.0); LYMPHOCYTES # (AUTO) 1.7 10^3/uL (1.5-3.5); LYMPHOCYTES % (AUTO) 13.4 %; MEAN CORPUSCULAR HEMOGLOBIN 26.7 pg (27.0-31.0); MEAN CORPUSCULAR HGB CONC 34.6 g/dL (32.0-36.0); MEAN CORPUSCULAR VOLUME 77.2 fL (80.0-94.0); MEAN PLATELET VOLUME 10.3 fL (7.4-11.4); MONOCYTES # (AUTO) 0.9 10^3/uL (0.0-1.0); MONOCYTES % (AUTO) 7.1 %; NEUTROPHILS % (AUTO) 78.2 %; PLT - PLATELET COUNT 345 10^3/uL (130-450); RED BLOOD COUNT 5.13 10^6/uL (4.70-6.10); RED CELL DISTRIBUTION WIDTH 13.2 % (12.0-15.0); WHITE BLOOD COUNT 12.8 x10^3/uL (4.8-10.8)
[2021-01-03 06:19] LABS: ALBUMIN/GLOBULIN RATIO 0.9 (1.0-2.2); ALKALINE PHOSPHATASE 51 IU/L (42-121); ALT ALANINE AMINOTRANSFERASE 20 IU/L (10-60); AST ASPARTATE AMINOTRANSFERASE 16 IU/L (10-42); BUN - BLOOD UREA NITROGEN 17 mg/dL (6-20); CALCIUM 8.8 mg/dL (8.5-10.3); CARBON DIOXIDE - CO2 21 mmol/L (21-32); CHLORIDE 108 mmol/L (101-111); CREATININE 1.1 mg/dL (0.6-1.2); GFR - MDRD 94 (>89); GLUCOSE 96 mg/dL (70-100); IONIZED CALCIUM IF INDICATED NO; POTASSIUM 3.5 mmol/L (3.5-5.0); SODIUM 138 mmol/L (135-145); TOTAL PROTEIN 6.4 g/dL (6.7-8.2)
--- NOTE | 2021-01-03 08:40 | XRAY Report ---
PROCEDURE: Chest 1 View X-Ray INDICATIONS: chest pain TECHNIQUE: One view of the chest was acquired. COMPARISON: Limited evaluation with CT abdomen and pelvis dated 01/01/2021 FINDINGS: Surgical changes and devices: None. Lungs and pleura: No pleural effusions or pneumothorax. Lungs are clear. Mediastinum: Mediastinal contours appear normal. Heart size is normal. Bones and chest wall: No suspicious bony lesions. Overlying soft tissues appear unremarkable. IMPRESSION: No evidence of an acute cardiopulmonary abnormality. Agree with preliminary report. Reviewed by: Juan C Dunaway DO on 01/03/2021 7:39 AM NA Approved by: Juan C Dunaway DO on 01/03/2021 7:39 AM NA Station ID: [id number]
[2021-01-03] MEDS: ENOXAPARIN 40 MG/0.4 ML SYRINGE SUBQ SCH (09:55)
[2021-01-03] MEDS: SODIUM CHLORIDE FLUSH 0.9% 10 ML SYRINGE IVP SCH ×3 (09:55→23:35)
[2021-01-03] MEDS ORDERED: POTASSIUM CHLORIDE 20 MEQ/15 ML UDC PO SCH (11:00)
--- NOTE | 2021-01-03 11:50 | PHARMACY PROGRESS NOTE ---
- Best Possible Medication History Admit Date and Time: 01/01/211929 Processed by: Pharmacy Medication History completed: Yes Patient Interview: Completed As the person ultimately responsible for medication therapy, providers are able to order a medication from an existing home medication list in [facility] via the "Reconcile Routine" prior to Confirmation of that medication by underwriting support manager. Such practice is discouraged except when the physician, in their clinical lauren gment, deems that a medical need exists for a medication without regard to previous use.
[2021-01-03] MEDS: POTASSIUM CHLOR 10 MEQ/100 ML 10 MEQ/100 ML BAG IV SCH ×3 (11:51→14:04)
[2021-01-03] MEDS: SODIUM CHLORIDE FLUSH 0.9% 10 ML SYRINGE IVP PRN (14:05)
--- NOTE | 2021-01-03 16:26 | PROVIDER PROGRESS NOTE ---
Progress Note Subjective 30-year-old male admitted with perforated appendicitis. Continues with bowel function. Voiding well. Awaiting fluid cultures. Drain in place. Tolerating diet. Objective Afebrile hemodynamically acceptable General Appearance: positive: No acute distress Eyes Bilateral: positive: Normal inspection ENT: positive: ENT inspection nml Neck: positive: Nml inspection Respiratory: positive: Chest non-tender, No respiratory distress, Breath sounds nml. negative: Wheezes, Rales, Rhonchi Cardiovascular: positive: Regular rate & rhythm Abdomen: See below Extremities: positive: Non-tender, Full ROM, Nml appearance Neurologic/Psychiatric: positive: Oriented x3, CN's nml (2-12) Impression/Plan 30-year-old male Hospital day #4 postoperative day #3 admitted with perforated appendicitis. Continues with bowel function. Voiding well. Awaiting fluid cultures. Drain in place. Tolerating diet. Likely discharge with the next 24 to 48 hours. (1) GI - Discontinue IVF, bowel regimen, advance diet as tolerated. GI ppx. Opiate sparring analgesia. (2) SURGERY - Continue drain. Will discuss PICC line placement and discharge with IV antibiotics. (3) Renal/Lytes - discontinue IVF. Renal indices within normal limits. (4) Respiratory - O2 as necessary. Continue IS. (5) Heme - Will continue with DVT ppx. H/H stable. (6) Cardiovascular - HD acceptable. (7) Neuro - Opiate sparring analgesia. Antispasmodics with Robaxin. (8) Immune/Infectious Disease - Continue antibiotics and await sensitivities.
[2021-01-03] MEDS ORDERED: METOPROLOL 5 MG/5 ML VIAL IVP PRN (20:33)
[2021-01-04] MEDS: PIPERACILLIN/TAZOBACTAM 3.375 GM in SODIUM CHLORIDE 0.9% MINIBAG 100 ML IV SCH ×3 (02:15→19:13)
[2021-01-04] MEDS: PANTOPRAZOLE 40 MG TABLET PO SCH (05:54)
[2021-01-04] MEDS: SODIUM CHLORIDE 0.9% 1,000 ML IV SCH (09:26)
[2021-01-04] MEDS: ENOXAPARIN 40 MG/0.4 ML SYRINGE SUBQ SCH (09:36)
[2021-01-04] MEDS: SODIUM CHLORIDE FLUSH 0.9% 10 ML SYRINGE IVP SCH ×2 (09:40→19:13)
[2021-01-04 15:55] VITALS: BP 159/87
--- NOTE | 2021-01-04 17:03 | Discharge Plan ---
Discharge Plan Problem Reviewed?: Yes Disposition: Home, Self Care Condition: Good Prescriptions: Amox/Clav 875/125 [Augmentin 875/125 Tab] 1 tablet PO Q12H 10 Days #20 tablet Docusate Sodium 100Mg Capsule [Colace 100Mg Capsule] 100 mg PO BID #60 cap Pantoprazole [Protonix] 40 mg PO QDAC #30 tablet Tramadol HCl [Ultram] 50 - 100 mg PO Q6H PRN #40 tablet PRN Reason: Pain Diet: Soft Activity Restrictions: see instructions Shower Restrictions: No Driving Restrictions: Yes (no driving while taking narcotis) Weight Bearing: Full Weight Instruction Topics: Appendectomy After, Tube Marcio Salazar Drainage Care Health Concerns: DISCHARGE INSTRUCTIONS TEMPLATE: No heavy lifting, pushing, or pulling. Stairs are allowed, no strenuous/exertional activities. 5-10lbs weight carrying limit (i.e. gallon of milk) If provided, abdominal binder while out of bed and while ambulating. Call or proceed to clinic/ER for fevers, severe pain, nausea, vomiting, inability to pass flatus/stool, bleeding, wound redness/discharge, weakness, excessively loose stool/diarrhea, or for any other reasonably worrisome symptom or concern. Soft diet, no raw vegetables, avoid high fiber foods. Colace 100mg by mouth twice to three times daily while taking narcotic pain medication. If no bowel movement in 24-48hr, may take 17g Miralax in 8oz water twice daily until bowel movement. May shower, no submersive bathing. Follow up in clinic in 2-4 weeks for wound check. No driving while taking narcotic pain medications. Follow up with primary care provider and/or medical subspecialist following discharge as well. Patient not allowed to drive self today or within 24 hours of surgery. Plan of Treatment: 1. Continue antibiotics as outpatient 2. Continue drain to bulb suction with planned outpatient follow-up in surgical clinic within 1 week 3. Follow-up with primary care for inpatient hypertension. No Smoking: If you smoke, Please STOP! Call for help. Follow-up with: Dk North MD [Provider Admit Priv/Credential] -
--- NOTE | 2021-01-04 17:03 | DISCHARGE SUMMARY ---
"Discharge Summary Admit Date: 01/01/21 Discharge Date: 01/04/21 Discharging Provider: Rios Primary Care Provider: Can Code Status: Attempt Resuscitation Condition at Discharge: Good Discharge Disposition: 01 Home, Self Care - DIAGNOSES Admission Diagnoses: 1. Presumptive sepsis 2. Appendicitis 3. Presumptive urinary tract infection 4. Hypertension 5. Abdominal pain Discharge Diagnoses with Status of Each Condition: 1. Sepsis - resolved 2. Appendicitis - Treated 3. Urinary tract infection - Treated 4. Hypertension - Treated/Pending follow up 5. Abdominal pain - Resolved - HPI History of Present Illness: 30-year-old male presenting with 1 day of abdominal pain. Work-up included CT scan as well as lab evaluation. Patient notable for a leukocytosis, positive appendicitis with inflammatory changes on CT imaging. Patient with urosepsis as well. Opted to proceed to the operating room urgently for laparoscopic intervention. - CONSULTS | PROCEDURES Consultations: None Procedures: Laparoscopic appendectomy Drainage of intra-abdominal abscess Diagnostic laparoscopy Laparoscopic assisted washout Laparoscopic assisted drain placement - HOSPITAL COURSE Hospital Course: Patient admitted with acute appendicitis. Patient underwent operative in tervention as listed in the electronic medical record. Tolerated procedure well for which there was no complication. Postoperatively the patient was managed for postoperative analgesia and resumption of bowel function. Patient had successfully passed trial of void. Tolerated oral intake without any complication. Denied nausea denied vomiting. Was advanced for diet without any complication patient did indeed have signs of ileus that resolved. Was counseled that given evidence of perforation and suppuration in the setting of the patient's acute appendicitis would recommend continued antibiotics for total of 2 weeks; patient was maintained on antibiotics during the hospital stay. The day prior to discharge the patient had some chest pain which was worked up by chest x-ray which was normal, and troponin which initially was at the upper level of normal but thereafter on serial lab draws was within normal limits. EKG was also grossly within normal limits. Patient did have some hypertension that was addressed with as needed IV push Lopressor. Patient had no dysuria, positive bowel function, resolution of leukocytosis, and was appropriate for discharge at this time on hospital day #4. Discharge instructions given. Analgesia with tramadol provided at time of discharge. Patient was discharged on Augmentin, culture without concern for ESBL E. coli on final sensitivity. Patient plan for follow-up and will be notified of pathology once returned. - ALLERGIES Allergies/Adverse Reactions: Allergies Allergy/AdvReac Type Severity Reaction Status Date / Time No Known Drug Allergies Allergy Verified 01/01/21 15:34 - MEDICATIONS Home Medications: Ambulatory Orders Medication Instructions Recorded Confirmed Acetaminophen [Tylenol] 650 mg PO Q4HR PRN tablet 01/04/21 Amox/Clav 875/125 [Augmentin 1 tablet PO Q12H 10 Days #20 tablet 01/04/21 875/125 Tab] Docusate Sodium 100Mg Capsule 100 mg PO BID #60 cap 01/04/21 [Colace 100Mg Capsule] Pantoprazole [Protonix] 40 mg PO QDAC #30 tablet 01/04/21 Tramadol HCl [Ultram] 50 - 100 mg PO Q6H PRN #40 tablet 01/04/21 - PHYSICAL EXAM AT DISCHARGE General Appearance: positive: No acute distress, Alert Eyes Bilateral: positive: Normal inspection, PERRL, EOMI ENT: positive: ENT inspection nml Neck: positive: Nml inspection Respiratory: positive: Chest non-tender Cardiovascular: positive: Regular rate & rhythm Abdomen: positive: Non-tender, No distention, Other (Dariusz serosanguinous). negative: Tenderness, Guarding, Rebound Skin: positive: Color nml, No rash Extremities: positive: Non-tender, Full ROM, Nml appearance Neurologic/Psychiatric: positive: Oriented x3, CN's nml (2-12), Motor nml, Sensation nml, Mood/affect nml - LABS Result Diagrams: 01/03/21 05:30 01/03/21 05:30 - SEPSIS Current Stage of Sepsis: Resolved Possible source of Sepsis: GI tract/intra-abdominal, Genitourinary Sepsis Criteria: Recorded Heart Rate greater than 90 bpm, Recorded Respiratory Rate greater than 20, WBC count greater than 12,000 or less than 4000 - FOLLOW UP Follow Up: Dr. North/Surgery clinic within 2 week. Primary care for hypertension control. Gen Surg clinic for drain check/removal within 1 week. - TIME SPENT Time Spent in Discharge (Minutes): 60"
== END 2021-01-04 18:30 | disposition home or self-care (01) | DRG 853 ==
LOC: ED 15:31 → SDS 17:35 → MS3 19:30 → ICU 19:51 → MS2 01-02 15:55
PROVIDERS: ADMIT Surgery; ATTEND Surgery
PROC: 0DTJ4ZZ Resection of Appendix, Percutaneous Endoscopic Approach (ICD-10-PCS; principal; 2021-01-01 18:00)
DX: A41.9 Sepsis, unspecified organism (principal); K35.33 Acute appendicitis with perforation, localized peritonitis, and gangrene, with abscess; C7A.020 Malignant carcinoid tumor of the appendix; N17.9 Acute kidney failure, unspecified; N39.0 Urinary tract infection, site not specified; K91.30 Postprocedural intestinal obstruction, unspecified as to partial versus complete; I10 Essential (primary) hypertension; R07.9 Chest pain, unspecified
CPT/HCPCS: 36415; 71045; 74177; 80053; 81001; 83605; 83690; 83735; 84100; 84484; 85025; 87040; 87070; 87077; 87086; 87150; 87181; 87205; 87635; 93005; 96361; 96374; 96375; 99284; 99285; A9270; J0131; J1170; J1650; J7120; Q9967; 81003

== ENCOUNTER 2021-01-30 12:27 | Outpatient (CLI) | payer OTHER ==
[2021-01-30 12:52] LABS: BASOPHILS % (AUTO) 0.5 %; EOSINOPHILS # (AUTO) 0.2 10^3/uL (0.0-0.7); EOSINOPHILS % (AUTO) 1.7 %; HCT - HEMATOCRIT 43.7 % (42.0-52.0); HGB - HEMOGLOBIN 14.8 g/dL (14.0-18.0); LYMPHOCYTES # (AUTO) 2.6 10^3/uL (1.5-3.5); LYMPHOCYTES % (AUTO) 29.1 %; MEAN CORPUSCULAR HEMOGLOBIN 26.5 pg (27.0-31.0); MEAN CORPUSCULAR HGB CONC 33.9 g/dL (32.0-36.0); MEAN CORPUSCULAR VOLUME 78.3 fL (80.0-94.0); MEAN PLATELET VOLUME 10.3 fL (7.4-11.4); MONOCYTES # (AUTO) 0.7 10^3/uL (0.0-1.0); MONOCYTES % (AUTO) 8.4 %; NEUTROPHILS # (AUTO) 5.3 10^3/uL (1.5-6.6); NEUTROPHILS % (AUTO) 59.6 %; PLT - PLATELET COUNT 350 10^3/uL (130-450); RED BLOOD COUNT 5.58 10^6/uL (4.70-6.10); RED CELL DISTRIBUTION WIDTH 13.4 % (12.0-15.0); WHITE BLOOD COUNT 8.8 x10^3/uL (4.8-10.8)
== END 2021-01-30 12:28 | disposition home or self-care (01) ==
LOC: LAB 12:27
PROVIDERS: ATTEND Surgery
DX: D3A.020 Benign carcinoid tumor of the appendix (principal)
CPT/HCPCS: 36415; 81599; 82378; 85025; 86316